=== PATIENT | female | born 1940 | race Caucasian/White ===

== ENCOUNTER 2018-11-02 12:20 | Emergency (ER) | payer MEDICARE ==
[~2018-11-02] VITALS: Ht 162.6 cm; Wt 65.0 kg
[~2018-11-02 12:20] MED LIST: ACET650T78 PO; ATEN25TA PO; CHOL400T57 PO; DULO60CA64 PO; FAMO40TA73 PO; HYDR25TA4 PO; LOPE-144 PO; POTA10TA10 PO; TRAM50TA2 PO
[2018-11-02] MEDS ORDERED: acetaminophen 325mg tablet PO STA (12:49)
[2018-11-02] MEDS ORDERED: normal saline 1000ML IV soln IV ONE (12:50)
--- NOTE | 2018-11-02 12:53 | NUR ---
refrigeration tech at bedside
--- NOTE | 2018-11-02 12:53 | NUR ---
pt is resting quietly on gurney, gave pt warm blanket, has been evaluated by Dr Child, report to Donnie GARDNER
--- NOTE | 2018-11-02 13:00 | NUR ---
1st liter NS infusing w/o, at bedside
--- NOTE | 2018-11-02 13:33 | NUR ---
pt up to bedside commode with assist, pt c/o dizziness and being lightheaded, urine sample contaminated, unable to send sample
--- NOTE | 2018-11-02 13:51 | NUR ---
2nd liter NS infusing w/o, in and out cath done with sterile technique, 400ml of dark yellow urine out, sample sent to lab
[2018-11-02 14:11] LABS: CLARITY,URINE CLEAR (Clear); COLOR,URINE YELLOW (Yellow); GLUCOSE, URINE NEGATIVE (Neg); KETONES,URINE 15 mg/dl (Neg); LEUKOCYTE ESTERASE ,URINE NEGATIVE (Neg); NITRITES, URINE NEGATIVE (Neg); OCCULT BLOOD,URINE MODERATE (Neg); PH,URINE 5.5 (4.8-8.0); PROTEIN,URINE NEGATIVE (Neg)
[2018-11-02 14:12] LABS: UA COLLECTION TYPE STRAIGHT CATH
[2018-11-02 14:28] LABS: BASOPHILS % (AUTO) 0.2 % (0-1); EOSINOPHILS % (AUTO) 0 % (0-6); HEMATOCRIT 38.8 % (35.0-45.0); LYMPHOCYTES # (AUTO) 0.2 X10'3 (1.1-4.8); LYMPHOCYTES % (AUTO) 5.1 % (21-51); MEAN CORPUSCULAR HEMOGLOBIN 32.6 PG (27.0-31.0); MEAN CORPUSCULAR HGB CONC 33.5 g/dL (33.0-36.5); MEAN CORPUSCULAR VOLUME 97.2 FL (78-98); MEAN PLATELET VOLUME 7.5 FL (7.4-10.4); MONOCYTES # (AUTO) 0.5 X10'3 (0-0.9); MONOCYTES % (AUTO) 10.9 % (2-12); NEUTROPHILS # (AUTO) 3.9 X10'3 (1.8-7.7); NEUTROPHILS % (AUTO) 83.8 % (42-75); PLATELET COUNT 169 X10'3 (140-440); RED BLOOD COUNT 3.99 X10'6 (4.20-5.60); RED CELL DISTRIBUTION WIDTH 13.3 % (11.5-14.5); WHITE BLOOD COUNT 4.7 X10'3 (4.5-11.0)
[2018-11-02 14:35] LABS: MUCUS STRANDS FEW /LPF (Neg); SQUAMOUS EPITHELIAL CELL,UR FEW /LPF (FEW)
[2018-11-02 14:36] LABS: INR 1.2 INR; PARTIAL THROMBOPLASTIN TIME 28 SECONDS (22-32); PROTHROMBIN TIME 11.8 SECONDS (9.0-12.0)
[2018-11-02 14:39] LABS: BACTERIA,URINE NONE SEEN /HPF (Neg); HYALINE CASTS 0-3 /LPF (NEGATIVE)
[2018-11-02 14:40] LABS: WBC,URINE 0-4 /HPF (0-4)
[2018-11-02 14:44] LABS: ALANINE AMINOTRANSFERASE 19 U/L (12-78); ALBUMIN 3.2 G/DL (3.4-5.0); ALBUMIN/GLOBULIN RATIO 1.1 (1.1-1.5); ALKALINE PHOSPHATASE 66 IU/L (46-116); ANION GAP 8 (8-16); ASPARTATE AMINO TRANSFERASE 17 U/L (10-37); BILIRUBIN,TOTAL 0.5 MG/DL (0.1-1.0); BLOOD UREA NITROGEN 13 MG/DL (7-18); BUN/CREATININE RATIO 18.1 (6.6-38.0); CALCIUM 7.9 MG/DL (8.5-10.1); CHLORIDE 102 MMOL/L (99-107); CREATININE 0.72 MG/DL (0.40-0.90); GLUCOSE 100 MG/DL (70-104); MAGNESIUM 1.3 MG/DL (1.5-2.4); POTASSIUM 2.7 MMOL/L (3.5-5.1); SODIUM 136 MMOL/L (135-145); TOTAL CARBON DIOXIDE 26.4 MMOL/L (24-32); eGFR 79 ML/MIN
[2018-11-02] MEDS ORDERED: potassium Cl 20 mEq SR tablet PO ONE (14:50)
[2018-11-02] MEDS: potassium 10mEq/100ml NS w/LIDOcaine (10mg/bag) IV SCH ×2 (15:19→16:22)
[2018-11-02 18:39] VITALS: BP 132/67
== END 2018-11-02 18:41 | disposition home or self-care (01) ==
LOC: ER 12:20
DX: E86.0 Dehydration (principal); E87.6 Hypokalemia; R19.7 Diarrhea, unspecified; R53.1 Weakness; Z90.49 Acquired absence of other specified parts of digestive tract; Z98.890 Other specified postprocedural states; Z88.5 Allergy status to narcotic agent; Z79.899 Other long term (current) drug therapy
CPT/HCPCS: 36415; 71045; 80053; 81001; 83605; 83735; 84145; 85025; 85610; 85730; 87040; 87045; 87046; 93005; 96361; 96365; 96366; 99284; J3480; J7030; P9612

== ENCOUNTER 2018-12-05 12:31 | Emergency (ER) | payer MEDICARE ==
[~2018-12-05] VITALS: Ht 162.6 cm; Wt 53.0 kg
[2018-12-05] MEDS ORDERED: acetaminophen 325mg tablet PO ONE (13:00)
[2018-12-05 13:28] LABS: BASOPHILS # (AUTO) 0.1 X10'3 (0-0.2); BASOPHILS % (AUTO) 0.6 % (0-1); EOSINOPHILS % (AUTO) 0.4 % (0-6); HEMATOCRIT 42.9 % (35.0-45.0); HEMOGLOBIN 14.6 g/dl (12.0-16.0); LYMPHOCYTES # (AUTO) 1.4 X10'3 (1.1-4.8); LYMPHOCYTES % (AUTO) 14.4 % (21-51); MEAN CORPUSCULAR HEMOGLOBIN 32.7 PG (27.0-31.0); MEAN CORPUSCULAR HGB CONC 34.1 g/dL (33.0-36.5); MEAN CORPUSCULAR VOLUME 95.9 FL (78-98); MEAN PLATELET VOLUME 7.7 FL (7.4-10.4); MONOCYTES # (AUTO) 0.8 X10'3 (0-0.9); MONOCYTES % (AUTO) 7.8 % (2-12); NEUTROPHILS # (AUTO) 7.5 X10'3 (1.8-7.7); NEUTROPHILS % (AUTO) 76.8 % (42-75); PLATELET COUNT 301 X10'3 (140-440); RED BLOOD COUNT 4.48 X10'6 (4.20-5.60); RED CELL DISTRIBUTION WIDTH 13.8 % (11.5-14.5); WHITE BLOOD COUNT 9.8 X10'3 (4.5-11.0)
[2018-12-05 13:51] LABS: ALANINE AMINOTRANSFERASE 26 U/L (12-78); ALBUMIN 3.5 G/DL (3.4-5.0); ALBUMIN/GLOBULIN RATIO 1.1 (1.1-1.5); ALKALINE PHOSPHATASE 71 IU/L (46-116); ANION GAP 11 (8-16); ASPARTATE AMINO TRANSFERASE 20 U/L (10-37); BILIRUBIN,TOTAL 0.5 MG/DL (0.1-1.0); BLOOD UREA NITROGEN 14 MG/DL (7-18); BUN/CREATININE RATIO 16.9 (6.6-38.0); CALCIUM 9.4 MG/DL (8.5-10.1); CHLORIDE 106 MMOL/L (99-107); CREATININE 0.83 MG/DL (0.40-0.90); GLUCOSE 107 MG/DL (70-104); SODIUM 142 MMOL/L (135-145); TOTAL CARBON DIOXIDE 25.3 MMOL/L (24-32); TOTAL PROTEIN 6.6 G/DL (6.4-8.2); eGFR 67 ML/MIN
[2018-12-05 13:52] LABS: POTASSIUM 2.9 MMOL/L (3.5-5.1)
[2018-12-05] MEDS ORDERED: potassium Cl 20 mEq SR tablet PO STA (14:15)
[2018-12-05] MEDS ORDERED: POTA20TA19 PO (14:15)
[2018-12-05] MEDS ORDERED: magnesium oxide 400mg tablet PO ONE (14:15)
[2018-12-05 14:43] VITALS: BP 128/80
== END 2018-12-05 14:44 | disposition home or self-care (01) ==
LOC: ER 12:32
DX: S06.0X0A Concussion without loss of consciousness, initial encounter (principal); S00.03XA Contusion of scalp, initial encounter; R00.0 Tachycardia, unspecified; E87.6 Hypokalemia; Z88.5 Allergy status to narcotic agent; Z88.8 Allergy status to other drugs, medicaments and biological substances; Z79.899 Other long term (current) drug therapy; Z98.890 Other specified postprocedural states; W01.0XXA Fall on same level from slipping, tripping and stumbling without subsequent striking against object, initial encounter; Y93.89 Activity, other specified; Y92.090 Kitchen in other non-institutional residence as the place of occurrence of the external cause; Y99.8 Other external cause status
CPT/HCPCS: 36415; 70450; 71045; 72125; 80053; 84439; 84443; 84484; 85025; 93005; 99284